=== PATIENT | female | born 1960 | race African-American/Black ===

== ENCOUNTER 2022-08-14 20:01 | Emergency (ER) | payer MEDICAID ==
[~2022-08-14] VITALS: Ht 177.8 cm; Wt 92.0 kg
[2022-08-14 20:53] LABS: BASOPHILS % 0.5 % (0.0-2.0); EOSINOPHILS % 0.9 % (0.0-5.0); HEMATOCRIT. 36.7 % (36.0-48.0); HEMOGLOBIN. 12.3 g/dL (12.0-16.0); LYMPHOCYTES % 29.5 % (20.0-50.0); MEAN CORPUSCULAR HEMOGLOBIN 26.7 pg (28.0-32.0); MEAN CORPUSCULAR VOLUME 79.4 fL (81.0-99.0); MEAN PLATELET VOLUME 8.7 fl (7.4-10.4); NEUTROPHILS % 63.1 % (40.0-76.0); PLATELET 160 x1000/uL (130-400); RED BLOOD CELL COUNT 4.63 mill/uL (4.2-5.4); RED CELL DISTRIBUTION WIDTH 14.2 % (11.6-14.6)
[2022-08-14 21:04] LABS: CHLORIDE 113 mEq/L (98-107); PARTIAL THROMBOPLASTIN TIME 23.7 sec (23.4-31.0); PROTHROMBIN TIME 10.4 sec (9.6-11.0)
[2022-08-14 21:23] LABS: CLARITY URINE CLEAR (CLEAR); COLOR URINE YELLOW (YELLOW); KETONES URINE 1+ (NEGATIVE); LEUKOCYTE ESTERASE URINE TRACE (NEGATIVE); NITRITE URINE NEGATIVE (NEGATIVE); OCCULT BLOOD URINE NEGATIVE (NEGATIVE); PH URINE 8.5 (4.5-8.0); PROTEIN URINE NEGATIVE (NEGATIVE); SPECIFIC GRAVITY URINE 1.008 (1.005-1.030); UROBILINOGEN URINE 0.2 E.U./dL (0.2-1.0)
[2022-08-14 21:57] VITALS: BP 141/63
== END 2022-08-14 22:03 | disposition home or self-care (01) ==
LOC: ER 20:01
DX: R55 Syncope and collapse (principal); R42 Dizziness and giddiness; R25.2 Cramp and spasm
CPT/HCPCS: 36415; 71045; 80053; 81003; 84484; 85025; 85610; 85730; 93005; 99285; Z7610

== ENCOUNTER 2023-08-25 15:58 | Emergency (ER) | payer MEDICAID ==
[~2023-08-25] VITALS: Ht 177.8 cm; Wt 83.0 kg
[2023-08-25 16:11] VITALS: PULSE 76
[2023-08-25 16:24] VITALS: BP 135/54; RESP 15; TEMP 98.5; O2SAT 100
[2023-08-25] MEDS ORDERED: LIDO700A15 TP (18:33)
[2023-08-25] MEDS ORDERED: ACET-2708 MT (18:33)
== END 2023-08-25 18:57 | disposition home or self-care (01) ==
LOC: ER 15:58
DX: M54.9 Dorsalgia, unspecified (principal)
CPT/HCPCS: 99283